=== PATIENT | male | born 1940 | race Caucasian/White ===

== ENCOUNTER 2023-11-21 06:36 | Inpatient (IN) | payer MEDICARE, OTHER, SELFPAY ==
--- NOTE | 2023-10-24 12:51 | CM ---
Patient is scheduled for an elective R THR on 11/21/23. Spoke with patient prior to surgery. Patient had a R TKR (April 2023), L TKR (October 2022) and L THR (2013) at . Reintroduced role of Orthopedic Navigator. Patient reports that he lives with
his (who patient is the primary caregiver for) in a two story home. There is one step to enter and patient has a first floor set up. He currently functions independently. He has a cane, raised toilet seat with rails, shower seat, hip kit and
rolling walker. He has had VN services through [facility]. Patient's has a caregiver Tuesday- Tuesday from 06-21. PCP is Ron Duarte.
Discussed orthopedic program and post surgical plans. Reviewed anticipated length of stay and that goal is for him to return home at discharge. Also reviewed outpatient PT. Patient is in agreement with tentative plan and will go directly to
outpatient PT at [facility]. His son will be staying with him and his for two weeks.
Patient will complete online education.
Plan: Orthopedic Navigator will remain available to assist with the care of patient and will reassess discharge needs after surgery.
[2023-11-02 09:06] VITALS: BMI 35.1
[2023-11-02 10:53] LABS: Hematocrit 41.7 % (39.0-52.0); Hemoglobin 14.1 g/dL (13.0-18.0); Mean Corp Hgb Conc. 33.8 g/dL (33.0-37.0); Mean Corpuscular Hgb 30.1 pg (27.0-31.0); Mean Corpuscular Volume 88.9 fL (80.0-94.0); Mean Platelet Volume 10.1 fL (7.4-10.4); Platelet Count 295 10^3/uL (130-400); Red Blood Cell Count 4.69 10^6/uL (4.70-6.10); Red Cell Dist. Width 13.4 % (11.5-14.5); White Blood Cell Count 8.4 10^3/uL (4.8-10.8)
--- NOTE | 2023-11-02 12:13 | HPS.HSE ---
Family Physician
-
Family Physician: Ron Duarte
Chief Complaint
-
Advanced primary osteoarthritis of the right hip.
History of Present Illness
The patient is an 83-year-old male presenting today for advanced primary osteoarthritis of the right hip. The patient previously underwent an uncomplicated right total knee arthroplasty in April 2023, a left total knee arthroplasty in
October 2022, and a left total hip arthroplasty in [address] Shai Khan. He returns to [facility] today with complaints of significant right hip pain associated with his osteoarthritis. He notes that his current right hip pain is
greatly interfering with his activities of daily living and is overall impacting his quality of life. He has tried and failed multiple conservative treatment measures in the past for his right hip pain. These conservative treatment measures include
physical therapy, self-directed therapeutic exercises, activity modification, viscosupplementation, corticosteroid injections, medical management with Tylenol and NSAIDs, and the application of ice and/or heat. Recent x-ray findings of the right hip
confirmed advanced osteoarthritis. He was determined to be in need of a right total hip arthroplasty. He denies any current complaints today such as chest pain, shortness of breath, palpitations, nausea, vomiting, diarrhea, lightheadedness,
dizziness, cough, sore throat, or fever.
Medical History
Past Medical History
Past Medical History: Reports Other
Additional Past Medical History:
1. Osteoarthritis, status post right total knee arthroplasty, 04/2023, left total knee arthroplasty, 10/2022, and left total hip arthroplasty, 2013, by Dr. Shai Khan.
2. Hypertension.
3. Hyperlipidemia.
4. Sinus bradycardia and PVCs, asymptomatic.
5. Right bundle branch block.
6. 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
7. Severe aortic stenosis, status post bovine aortic valve replacement 08/2019.
8. Mild-moderate tricuspid regurgitation.
9. Mild mitral regurgitation.
10. Non-cardiac related chest pain; cath 05/2023 without obstructive coronary artery disease.
11. Asthma, mild and intermittent.
12. Chronic bronchitis.
13. Obstructive sleep apnea, inconsistent with CPAP.
14. Xjk-ndjqrwu-dwtxvfivp diabetes, A1c 6.6.
15. GERD.
16. Colon polyps.
17. Diverticulosis.
18. Nephrolithiasis.
19. Chronic constipation.
20. Fatty liver disease.
21. Lumbar stenosis.
22. Multilevel degenerative disc disease.
23. Peripheral neuropathy.
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
25. BPH with urgency.
26. Deviated septum.
27. Subcutaneous nodules of bilateral elbows.
28. Dry macular degeneration.
29. Ingrown toenail, status post removal 10/26/2022 and prophylactic Keflex.
30. Obesity, BMI 35.1.
31. History of infrequent tobacco abuse.
Past Surgical History: Reports Other
Additional Past Surgical History:
1. Right total knee arthroplasty, 04/2023, by Dr. Shai Khan.
2. Left total knee arthroplasty, 10/2022, by Dr. Shai Khan.
3. Left total hip arthroplasty, 2013, by Dr. Shai Khan.
4. Right rotator cuff repair.
5. Bovine aortic valve replacement.
6. Cardiac catheterization x2.
7. Bilateral inguinal hernia repair.
8. Radiofrequency ablation.
9. MOHS.
10. Multiple skin grafts.
11. Multiple epidural steroid injections.
12. Bilateral cataract extraction.
13. Colonoscopy.
14. Endoscopy x2.
Social History
Tobacco: Other (He denies any cigarette smoking previously; however, he does report rare cigar use in the past. )
Alcohol: Other (He reportedly drinks 3-4 glasses of wine weekly. )
Personal:
Living: Other (The patient lives in a two-story home with his . He is her primary caregiver as she is wheelchair bound. He does report that his home has a first-floor main setup. He notes that his son will be helping him for two weeks
post-surgery.)
Family History
Family History: Not pertinent
Allergies / Home Medications
Allergy/Medication List:
Home medications:
1. Albuterol sulfate one puff inhaled every four hours as needed.
2. Amlodipine 5 mg p.o. daily.
3. Aspirin 81 mg p.o. daily.
4. Atorvastatin 40 mg p.o. daily.
5. Carvedilol 6.25 mg p.o. twice a day.
6. Famotidine 40 mg p.o. daily.
7. Valsartan 80 mg p.o. daily.
8. Metformin 500 mg p.o. twice a day.
9. Esomeprazole magnesium 40 mg p.o. twice a day.
10. PreserVision one tablet p.o. daily.
11. Breo Ellipta inhaler 1 inhalation daily.
�
ALLERGIES:� No known allergies.
ADVERSE DRUG REACTIONS: Oxycodone (dizziness, nausea).
Review of Systems
-
A 12 point ROS was completed and negative except as noted: Yes
Physical Exam
Vital Signs
Blood pressure 131/64. Heart rate 69. Respirations 18. Pulse ox 97% on room air.
Height 5 feet, 7 inches. Weight 101.7 kg. BMI 35.1.
Physical Exam
General: Well Developed, Well Nourished and No Apparent Distress
HEENT: NormoCephalic, Moist mucous membranes, PERRLA and Other (Skin graft noted on right sided scalp/cranium. )
Respiratory: Clear
Cardiac: Regular Rhythm and Murmur (Grade 1/6 systolic murmur. )
GI: Soft, Non Tender and Non Distended
Musculoskeletal: Other (Right hip: pain with internal rotation to 20 degrees, no pain with external rotation to 20 degrees, abduction to 30 degrees, and flexion to 110 degrees. )
Skin: Warm and Dry
Neuro: AO x 3 and Nonfocal/grossly intact
Laboratory Results
-
11/02/23 08:54
DIAGNOSTIC STUDIES as of 11/02/2023: Sodium 135. Potassium 4.8. BUN 20. Creatinine 1.2. Glucose 152. Hemoglobin A1c 6.6. Calcium 9.7. AST 20. ALT 17. Albumin 4.4. MRSA nasal screen negative.
EKG provided by Cardiology.
Echocardiogram 10/27/2023: Normal left ventricular size and wall thickness with mildly reduced LV systolic function. Left ventricular ejection fraction estimated by Lynch's biplane method 45-50%. Grade 1 diastolic dysfunction. Dilated left atrium.
Thickened mitral valve leaflets with mitral annular calcification.�Mild mitral regurgitation. #25 mm bovine Pettit tissue valve with peak/mean gradients of 12/8 mmHg, respectively. AV Dimensionless Index 0.6. No paravalvular or valvular aortic
regurgitation is seen. Aortic root not well visualized. Dilated ascending aorta-4.6 cm. Aortic arch not well visualized. Mild-moderate tricuspid regurgitation. Estimated pulmonary artery pressure of 32 mmHg assuming a right atrial pressure of 3
mmHg. Compared to prior study dated 06/03/2023, there is no significant change.
Cardiac catheterization 06/16/2023: Stable non-obstructive coronary disease.
Impression/Plan
-
CLEARANCES:
1. Primary medical, Jenna Pineda PA-C, pending.
Primary medical phone number: [phone].
2. Cardiology, Dr. Diogenes Fam, cleared.
3. Dental waived.
IMPRESSION/PLAN:
1. Advanced primary osteoarthritis of the right hip in need of a right total hip arthroplasty by Dr. Shai Khan on 11/21/2023. The benefits and risks of the procedure have been explained to the patient. The patient understands these risks and
wishes to proceed.
2. Deep vein thrombosis prophylaxis: Aspirin with bilateral venous compression devices.
3. Chronic constipation: We will add Milk of Magnesia nightly to a bowel regimen of Colace and Senokot post-surgery.
4. Pain management: The patient would prefer to avoid Oxycodone and [place] if possible. We will attempt pain control with Tylenol with Codeine as needed for moderate to severe post-operative pain. We will also include Toradol per patient preference.
Gabapentin may be considered for breakthrough pain as the patient has tolerated this medication previously.
Patient's phone number: [phone].
Patient's contact (Dariela Hinton - Spouse): [phone].
[2023-11-02 12:35] LABS: ALT (SGPT) 17 U/L (0-50); AST (SGOT) 20 U/L (17-59); Albumin 4.4 g/dl (3.5-5.0); Alkaline Phosphatase 94 U/L (38-126); Blood Urea Nitrogen 20 mg/dl (9-20); Calcium 9.7 mg/dl (8.4-10.2); Carbon Dioxide 25 mmol/L (22-30); Chloride 104 mmol/L (98-107); Estimated Creatinine Clearance 54 ml/min; Glucose 152 mg/dl (70-99); Potassium 4.8 mmol/L (3.5-5.1); Sodium 135 mmol/L (135-145); Total Bilirubin 0.6 mg/dl (0.2-1.3); Total Protein 7.2 g/dl (6.3-8.2); eGFR > 60.00
[2023-11-02 13:21] LABS: Glycohemoglobin (HgbA1c) 6.6 % (4.0-5.6)
[2023-11-02 15:27] VITALS: BMI 35.1
[2023-11-21] VITALS (16 sets, daily range): BP systolic 84–151; BP diastolic 37–78; PULSE 67–81; O2SAT 94–97
[2023-11-21 09:09] LABS: Glucose - Point of Care 106 mg/dl (70-99)
[2023-11-21] MEDS: CELEBREX 200 MG PO (09:14)
[2023-11-21] MEDS: TYLENOL 650 MG PO (09:14)
[2023-11-21] MEDS: NORMOSOL-R 1000 IV ×2 (09:15→12:50)
[2023-11-21 12:09] LABS: Glucose - Point of Care 113 mg/dl (70-99)
[2023-11-21] MEDS: TYLENOL #3 1 TABLET PO ×2 (13:00→21:01)
[2023-11-21] MEDS: NOVOLOG FLEXPEN-MODERATE RESISTANCE SC (13:25)
--- NOTE | 2023-11-21 14:30 | PTCARENOTE ---
pt admitted to room 210 from the PACU at 1325. pt arrived awake and alert, at bedside. Telemetry reading SR w/pvc's. tolerating water and instructed to order regular food. Right hip surgical dressing clean and dry, ice pack in place. weak
pedal pulses noted B/L LE. pt just starting to move his toes, decreased sensation noted upon arrival. toes are pink and warm. pt oriented to room, environment and plan of care with verbalized understanding. will observe.
[2023-11-21] MEDS: PEPCID 40 MG PO (14:59)
[2023-11-21] MEDS: TORADOL 10 MG PO (14:59)
[2023-11-21] MEDS: GLUCOPHAGE PO (14:59)
[2023-11-21] MEDS: PROTONIX 40 MG PO (14:59)
[2023-11-21] MEDS: LIPITOR 40 MG PO (14:59)
--- NOTE | 2023-11-21 15:05 | W.PN.ORTHO ---
Today's Communication / Plan
-
D/c when clinically stable.
Assessment
.
Distal Motor Intact: Yes
Dressing:
Clean, dry and intact.
Assessment:
R hip OA s/p R EMIR w/ Dr Khan 11/21/23
- s/p R TKA, 04/2023, L TKA, 10/2022, and L EMIR, 2013, by Dr Khan
DVT prophylaxis - ASA, b/l venous foot pumps
HTN - + parameters - monitor BP
Sinus bradycardia, RBBB, and PVCs, asymptomatic - monitor on tele
- Resume BB w/ HR parameters
Asthma, mild and intermittent, Chronic bronchitis, and CELIO, non-compliant w/ CPAP - monitor O2 on continuous pulse ox and wean supplemental O2 as tolerated
- Resume inhalers
- IS
- Add supplemental O2 HS due to CELIO
Hix-ccrixsl-dplmtpfej diabetes, A1c 6.6 - monitor BS
- Resume Metformin
- + SSI
GERD - resume Pepcid, PPI therapy
Chronic constipation - add MOM HS to bowel regimen of Colace and Senna
Peripheral neuropathy - add Gabapentin TID
BPH with urgency - add daily Flomax
- Monitor voids
HLD
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
Severe , status post bovine AVR 08/2019
Mild-moderate tricuspid regurgitation
Mild mitral regurgitation
Non-cardiac related chest pain; cath 05/2023 without obstructive coronary artery disease
Colon polyps
Diverticulosis
Nephrolithiasis
Fatty liver disease
Lumbar stenosis
Multilevel degenerative disc disease
Angiosarcoma of right scalp, status post MOHS, multiple skin grafts, and chemo 2016
Deviated septum
Subcutaneous nodules of bilateral elbows
Dry macular degeneration
Ingrown toenail, status post removal 10/26/2022 and prophylactic Keflex
Obesity, BMI 35.1
History of infrequent tobacco abuse
Pt will need Cefadroxil x1 week upon d/c for continued joint prophylaxis
Plan
.
Surgery / Date: R EMIR w/ Dr Khan 11/21/23
DVT Prophylaxis: Aspirin
Activity:
Out of bed.
PT/OT
Discharge Plan: Home w/ Outpatient PT
Subjective
.
.:
Patient examined resting in bed.
Complaints of mild R hip 'burning' pain - will add Gabapentin TID.
Denies any other new significant complaints.
Vital Signs and Labs
.
Vital Signs and Labs:
Lab Results
11/02/23 08:54
11/02/23 08:54
Physical Exam
-
HEENT: No pallor, cyanosis, or jaundice. Throat clear.
NECK: Supple. No JVD.
RESPIRATORY: Lungs clear to auscultation.
CVS: S1, S2 normal. RRR.�1/6 systolic murmur.
ABDOMEN: Soft, non-tender. No distension. obese.
EXTREMITIES: Strength equal, no calf pain with palpation/dorsiflexion. Calves soft.
CRANIOLOGIST: AOx3. No focal deficits. top case assembler grossly intact
[2023-11-21] MEDS: FLOMAX 0.400000000000000022 MG PO (16:22)
[2023-11-21] MEDS: NEURONTIN 200 MG PO ×2 (16:22→20:50)
[2023-11-21 17:18] LABS: Glucose - Point of Care 244 mg/dl (70-99)
[2023-11-21] MEDS: GLUCOPHAGE 500 MG PO (17:26)
[2023-11-21] MEDS: NOVOLOG FLEXPEN-MODERATE RESISTANCE 3 UNITS SC (17:27)
[2023-11-21] MEDS: ANCEF 5 IV (18:20)
[2023-11-21] MEDS: ASPIRIN 325 MG PO (18:20)
[2023-11-21] MEDS: MILK OF MAGNESIA 30 ML PO (20:50)
[2023-11-21] MEDS: COLACE 100 MG PO (20:51)
[2023-11-21] MEDS: SENOKOT 17.1999999999999993 MG PO (20:51)
[2023-11-21] MEDS: COREG 6.25 MG PO (20:56)
[2023-11-21 22:01] LABS: Glucose - Point of Care 223 mg/dl (70-99)
[2023-11-21] MEDS: BACTROBAN 2% OINTMENT 1 APPLIC NASAL (22:31)
[2023-11-22] MEDS: TORADOL 10 MG PO ×2 (00:20→08:38)
[2023-11-22] MEDS: ANCEF 5 IV (02:36)
[2023-11-22] MEDS: TYLENOL #3 2 TABLET PO (02:40)
[2023-11-22 03:06] VITALS: BP 131/73
[2023-11-22] MEDS: SYMBICORT 80/4.5 MCG INHALER 2 PUFF INH (07:24)
[2023-11-22] MEDS: ProAIR HFA INHALER 1 PUFF INH (07:37)
[2023-11-22 08:00] VITALS: BP 105/50
[2023-11-22] MEDS: NOVOLOG FLEXPEN-MODERATE RESISTANCE SC (08:37)
[2023-11-22] MEDS: FLOMAX 0.400000000000000022 MG PO (08:38)
[2023-11-22] MEDS: SENOKOT 17.1999999999999993 MG PO (08:38)
[2023-11-22] MEDS: GLUCOPHAGE 500 MG PO (08:38)
[2023-11-22] MEDS: COLACE 100 MG PO (08:39)
[2023-11-22] MEDS: ASPIRIN 325 MG PO (08:39)
[2023-11-22] MEDS: NEURONTIN 200 MG PO (08:39)
[2023-11-22] MEDS: PEPCID 40 MG PO (08:39)
[2023-11-22] MEDS: PROTONIX 40 MG PO (08:39)
[2023-11-22] MEDS: COREG 6.25 MG PO (08:39)
[2023-11-22] MEDS: LIPITOR 40 MG PO (08:39)
[2023-11-22] MEDS: BACTROBAN 2% OINTMENT 1 APPLIC NASAL (08:39)
--- NOTE | 2023-11-22 09:40 | CM ---
Reviewed chart and held rounds with PT, OT and nursing. Patient admitted as planned for elective R THR. Met with patient at bedside. Confirmed information previously obtained for assessment. Also discussed discharge plans. The plan is for patient
to go to his home at discharge. He will have support from his son. Patient will go directly to outpatient PT at [facility]. He has an appointment for Tuesday, November 23. Reviewed need to schedule appointment with PA at Dr. Khan office in
two weeks for removal of edilma.
Patient has a cane, raised toilet seat with rails, shower seat, hip kit and rolling walker.
He will use [facility].
[2023-11-22 10:10] VITALS: BP 114/71; PULSE 74
--- NOTE | 2023-11-22 10:39 | W.PN.ORTHO ---
Today's Communication / Plan
-
Await PT recs.
D/c later today if remaining clinically stable.
Assessment
.
Distal Motor Intact: Yes
Dressing:
Clean, dry and intact.
Assessment:
R hip OA s/p R EMIR w/ Dr Khan 11/21/23
- s/p R TKA, 04/2023, L TKA, 10/2022, and L EMIR, 2013, by Dr Khan
DVT prophylaxis - ASA, b/l venous foot pumps
HTN - + parameters - BPs stable
Sinus bradycardia, RBBB, and PVCs, asymptomatic - NSR w/ monomorphic PVCs on tele
- Resumed BB w/ HR parameters
Asthma, mild and intermittent, Chronic bronchitis, and CELIO, non-compliant w/ CPAP - O2 stable on RA
- Resumed inhalers
- IS
- S/p supplemental O2 HS due to CELIO; advised compliance w/ at home CPAP
Nlx-lneyoem-rwaufttiq diabetes, A1c 6.6 - BS readings initially elevated 2* surgical stress, IV steroids in OR, and holding of AM Metformin the DOS
- BS readings expected to improve w/ resumption of Metformin
- Needed minimal SSI during admission
GERD - resumed Pepcid, PPI therapy
Chronic constipation - continue MOM HS with standard bowel regimen of Colace and Senna
Peripheral neuropathy - continue Gabapentin TID
BPH with urgency - voiding appropriately by POD 1
- S/p Flomax during admission
HLD
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
Severe , status post bovine AVR 08/2019
Mild-moderate tricuspid regurgitation
Mild mitral regurgitation
Non-cardiac related chest pain; cath 05/2023 without obstructive coronary artery disease
Colon polyps
Diverticulosis
Nephrolithiasis
Fatty liver disease
Lumbar stenosis
Multilevel degenerative disc disease
Angiosarcoma of right scalp, status post MOHS, multiple skin grafts, and chemo 2016
Deviated septum
Subcutaneous nodules of bilateral elbows
Dry macular degeneration
Ingrown toenail, status post removal 10/26/2022 and prophylactic Keflex
Obesity, BMI 35.1
History of infrequent tobacco abuse
Pt will need Cefadroxil x1 week upon d/c for continued joint prophylaxis
Plan
.
Surgery / Date: R EMIR w/ Dr Khan 11/21/23
DVT Prophylaxis: Aspirin
Activity:
Out of bed.
PT/OT
Discharge Plan: Home w/ Outpatient PT
Subjective
.
.:
Patient resting comfortably in his chair this AM.
Did well w/ OT this AM; awaiting PT assessment.
Denies any new significant complaints.
R hip pain well controlled w/ current pain med regimen.
Eager for potential d/c today.
Vital Signs and Labs
.
Vital Signs and Labs:
Lab Results
11/02/23 08:54
11/02/23 08:54
Temp Pulse Resp BP Pulse Ox
97.9 F 74 20 105/50 91
11/22/23 08:00 11/22/23 08:00 11/22/23 08:00 11/22/23 08:40 11/22/23 08:00
Non-invasive Hgb result: 12.1
Physical Exam
-
HEENT: No pallor, cyanosis, or jaundice. Throat clear.
NECK: Supple. No JVD.
RESPIRATORY: Lungs clear to auscultation.
CVS: S1, S2 normal. RRR.�
ABDOMEN: Soft, non-tender. No distension. Obese.
EXTREMITIES: Strength equal, no calf pain with palpation/dorsiflexion. Calves soft.
CELLOPHANER: AOx3. No focal deficits. rocket propellant plant supervisor grossly intact
--- NOTE | 2023-11-23 08:22 | W.DS.TRANS ---
DC Summary - Web Site Developer
-
Discharge Instructions:
Discharge Diagnosis/Procedures R hip OA s/p R EMIR w/ Dr Khan 11/21/23
Diet Diabetic, Carb Controlled
Activity As tolerated,With Walker
Driving Restrictions Not until seen by your Dr
Bathing Restrictions OK to Shower
Other Services PT
Wound Care Dressing to be removed 1 week post-surgery.
Misael to be removed in 2 weeks at follow-up
appointment with surgeon's office.
Instructions:
Stand-Alone Forms: Total Hip/Knee Replacement D/C
Changes to Home Medications: Yes
Discharge Medications:
DC Medications w/original date entered in [facility]
famotidine 40 mg tablet 40 mg PO DAILY Gastrointestinal issue 11/05/13
albuterol sulfate 90 mcg/actuation aerosol inhaler (Ventolin HFA) 1 puff inhalation Q4HPRN PRN As Needed 07/16/19
atorvastatin 40 mg tablet 40 mg PO DAILY High cholesterol 07/16/19
carvedilol 6.25 mg tablet 6.25 mg PO BID Heart disease/condition 11/03/22
metformin 500 mg tablet 500 mg PO BID Diabetes 04/05/23
vit C 250 mg-vit E 90 mg-zinc 40 mg-copper 1 ab-fshkfq-xxraec capsule (PreserVision AREDS-2) 1 tab PO DAILY Supplement 04/05/23
fluticasone furoate 100 mcg-vilanterol 25 mcg/dose inhalation powder (Breo Ellipta) 1 inh inhalation DAILY 06/16/23
esomeprazole magnesium 40 mg capsule,delayed release (Nexium) 40 mg PO DAILY 10/28/23
mupirocin 2 % topical ointment 1 applic intranasal BID #1 tube 11/02/23
Bifidobacterium infantis 4 mg capsule (Align) 4 mg PO DAILY #7 caps 11/22/23
acetaminophen 300 mg-codeine 30 mg tablet 1 - 2 tab PO Q4HPRN PRN moderate-severe pain #30 tabs 11/22/23
acetaminophen 325 mg tablet 650 mg PO Q4HPRN PRN mild pain #60 tabs 11/22/23
amlodipine 5 mg tablet 5 mg PO DAILY #0 tabs 11/22/23
aspirin 325 mg tablet 325 mg PO DAILY #30 tabs 11/22/23
cefadroxil 500 mg capsule 500 mg PO BID #14 caps 11/22/23
docusate sodium 100 mg capsule 100 mg PO BID #30 caps 11/22/23
gabapentin 100 mg capsule 200 mg PO TID #30 caps 11/22/23
ketorolac 10 mg tablet 10 mg PO Q8H #15 tabs 11/22/23
magnesium hydroxide 400 mg/5 mL oral suspension 30 ml PO HS #3,780 mL 11/22/23
ondansetron HCl 4 mg tablet 4 mg PO Q6H PRN nausea and vomiting #30 tabs 11/22/23
sennosides 8.6 mg tablet (Senna Lax) 17.2 mg PO BID #30 tabs 11/22/23
valsartan 80 mg tablet 80 mg PO DAILY #0 tabs 11/22/23
Home Medication Changes
Bifidobacterium infantis 4 mg capsule (Align) 4 mg PO DAILY #7 caps 11/22/23
acetaminophen 300 mg-codeine 30 mg tablet 1 - 2 tab PO Q4HPRN PRN moderate-severe pain #30 tabs 11/22/23
acetaminophen 325 mg tablet 650 mg PO Q4HPRN PRN mild pain #60 tabs 11/22/23
aspirin 325 mg tablet 325 mg PO DAILY #30 tabs 11/22/23
cefadroxil 500 mg capsule 500 mg PO BID #14 caps 11/22/23
docusate sodium 100 mg capsule 100 mg PO BID #30 caps 11/22/23
gabapentin 100 mg capsule 200 mg PO TID #30 caps 11/22/23
ketorolac 10 mg tablet 10 mg PO Q8H #15 tabs 11/22/23
magnesium hydroxide 400 mg/5 mL oral suspension 30 ml PO HS #3,780 mL 11/22/23
ondansetron HCl 4 mg tablet 4 mg PO Q6H PRN nausea and vomiting #30 tabs 11/22/23
sennosides 8.6 mg tablet (Senna Lax) 17.2 mg PO BID #30 tabs 11/22/23
Pending Results: No
== END 2023-11-22 12:06 | disposition home or self-care (01) | DRG 470 ==
LOC: 2 SOUTH 06:36
PROVIDERS: ADMITTING PHYSICIAN Specialist; FAMILY PHYSICIAN Internal Medicine
PROC: 0SR90JA Replacement of Right Hip Joint with Synthetic Substitute, Uncemented, Open Approach (ICD-10-PCS; 2023-11-21)
DX: M16.11 Unilateral primary osteoarthritis, right hip (principal); I10 Essential (primary) hypertension; E78.5 Hyperlipidemia, unspecified; I07.1 Rheumatic tricuspid insufficiency; K21.9 Gastro-esophageal reflux disease without esophagitis; Z68.35 Body mass index [BMI] 35.0-35.9, adult; E66.9 Obesity, unspecified; G47.33 Obstructive sleep apnea (adult) (pediatric); Z99.3 Dependence on wheelchair; Z91.199 Patient's noncompliance with other medical treatment and regimen due to unspecified reason; E11.9 Type 2 diabetes mellitus without complications; K59.09 Other constipation; G62.9 Polyneuropathy, unspecified; N40.1 Benign prostatic hyperplasia with lower urinary tract symptoms; R39.15 Urgency of urination; J45.20 Mild intermittent asthma, uncomplicated; J44.89 Other specified chronic obstructive pulmonary disease
CPT/HCPCS: 36415; 73502; 80053; 82962; 83036; 85027; 87070; 94640; 97110; 97162; 97166; 97530; 97535; C1713; C1776

== ENCOUNTER → 2023-12-31 12:56 | Outpatient (REF) | payer MEDICARE, OTHER, SELFPAY | LOC: RAD 12:56 | PROVIDERS: ATTENDING PHYSICIAN Specialist; FAMILY PHYSICIAN Internal Medicine | DX: R60.0 Localized edema (principal) | CPT/HCPCS: 93971 ==

== ENCOUNTER → 2024-03-26 07:22 | Outpatient (REF) | payer MEDICARE, OTHER, SELFPAY ==
[2024-03-26 09:07] LABS: Hematocrit 42.6 % (39.0-52.0); Hemoglobin 14.2 g/dL (13.0-18.0); Mean Corp Hgb Conc. 33.3 g/dL (33.0-37.0); Mean Corpuscular Hgb 29.5 pg (27.0-31.0); Mean Corpuscular Volume 88.6 fL (80.0-94.0); Mean Platelet Volume 10.4 fL (7.4-10.4); Platelet Count 212 10^3/uL (130-400); Red Blood Cell Count 4.81 10^6/uL (4.70-6.10); Red Cell Dist. Width 15.6 % (11.5-14.5); White Blood Cell Count 6.8 10^3/uL (4.8-10.8)
[2024-03-26 12:15] LABS: Blood Urea Nitrogen 31 mg/dl (9-20); Calcium 10.2 mg/dl (8.4-10.2); Carbon Dioxide 20 mmol/L (22-30); Chloride 108 mmol/L (98-107); Glucose 99 mg/dl (70-99); Potassium 5.2 mmol/L (3.5-5.1); Sodium 138 mmol/L (135-145); eGFR 54.85
== END ==
LOC: SDSPAT 07:22
PROVIDERS: ATTENDING PHYSICIAN Student in an Organized Health Care Education/Training Program; FAMILY PHYSICIAN Internal Medicine; OTHER PHYSICIAN Dermatology
DX: Z01.818 Encounter for other preprocedural examination (principal)
CPT/HCPCS: 36415; 80048; 85027

== ENCOUNTER 2024-04-09 06:18 | Day surgery (SDC) | payer MEDICARE, OTHER, SELFPAY ==
[2024-03-26 07:38] VITALS: BMI 34.2
[2024-04-09] VITALS (11 sets, daily range): BP systolic 117–129; BP diastolic 52–99; BMI 34.2
[2024-04-09 08:30] LABS: Glucose - Point of Care 107 mg/dl (70-99)
[2024-04-09] MEDS: CELEBREX 200 MG PO (08:36)
[2024-04-09] MEDS: NORMOSOL-R 1000 IV (08:37)
[2024-04-09] MEDS: TYLENOL 1000 MG PO (08:37)
[2024-04-09] MEDS: COREG 6.25 MG PO (09:18)
[2024-04-09] MEDS: DILAUDID 0.5 MG IV (12:01)
[2024-04-09 12:10] LABS: Glucose - Point of Care 116 mg/dl (70-99)
[2024-04-09] MEDS: DILAUDID 0.25 MG IV (12:24)
== END 2024-04-09 14:25 | disposition home or self-care (01) ==
LOC: SDS 06:18
PROVIDERS: ATTENDING PHYSICIAN Student in an Organized Health Care Education/Training Program; FAMILY PHYSICIAN Internal Medicine
DX: M21.41 Flat foot [pes planus] (acquired), right foot (principal); M67.01 Short Achilles tendon (acquired), right ankle; Q66.6 Other congenital valgus deformities of feet
CPT/HCPCS: 27687; 28725; 73610; 76000; 82962; 93005

== ENCOUNTER → 2024-05-25 06:29 | Day surgery (SDC) | payer MEDICARE, OTHER, SELFPAY ==
[2024-05-25 13:23] LABS: Glucose - Point of Care 101 mg/dl (70-99)
== END ==
LOC: GI 06:29
PROVIDERS: ATTENDING PHYSICIAN Internal Medicine Gastroenterology; FAMILY PHYSICIAN Internal Medicine
DX: Z12.11 Encounter for screening for malignant neoplasm of colon (principal); D12.3 Benign neoplasm of transverse colon; K57.30 Diverticulosis of large intestine without perforation or abscess without bleeding; K64.8 Other hemorrhoids; Z86.010 Personal history of colon polyps
CPT/HCPCS: 45380; 88305; 82962

== ENCOUNTER → 2024-11-19 12:26 | Outpatient (REF) | payer MEDICARE, OTHER, SELFPAY ==
[2024-11-19 13:06] LABS: % Basophils 0.4 % (0-2); % Immature Granulocytes 0.5 % (0-0.5); % Lymphocytes 17.2 % (20.5-51.1); % Monocytes 8.1 % (1.7-9.3); % Neutrophils 73.8 % (42.2-75.2); Absolute Lymphocytes 1.3 10^3/uL (1.2-3.4); Absolute Monocytes 0.6 10^3/uL (0.1-0.6); Absolute Neutrophils 5.4 10^3/uL (1.4-6.5); Hematocrit 40.5 % (39.0-52.0); Hemoglobin 13.4 g/dL (13.0-18.0); Mean Corp Hgb Conc. 33.1 g/dL (33.0-37.0); Mean Corpuscular Hgb 30.2 pg (27.0-31.0); Mean Corpuscular Volume 91.4 fL (80.0-94.0); Mean Platelet Volume 10.2 fL (7.4-10.4); Platelet Count 271 10^3/uL (130-400); Red Blood Cell Count 4.43 10^6/uL (4.70-6.10); Red Cell Dist. Width 13.4 % (11.5-14.5); White Blood Cell Count 7.3 10^3/uL (4.8-10.8)
[2024-11-19 13:55] LABS: ALT (SGPT) 15 U/L (0-50); AST (SGOT) 19 U/L (17-59); Albumin 4.4 g/dl (3.5-5.0); Alkaline Phosphatase 82 U/L (38-126); Blood Urea Nitrogen 22 mg/dl (9-20); Calcium 9.4 mg/dl (8.4-10.2); Carbon Dioxide 22 mmol/L (22-30); Chloride 104 mmol/L (98-107); Glucose 112 mg/dl (70-99); Potassium 4.4 mmol/L (3.5-5.1); Sodium 138 mmol/L (135-145); Total Bilirubin 0.8 mg/dl (0.2-1.3); Total Protein 6.9 g/dl (6.3-8.2); eGFR > 60.00
== END ==
LOC: OIDL 12:26
PROVIDERS: ATTENDING PHYSICIAN Internal Medicine Hematology & Oncology
DX: C49.0 Malignant neoplasm of connective and soft tissue of head, face and neck (principal)
CPT/HCPCS: 80053; 85025

== ENCOUNTER → 2024-11-26 15:26 | Outpatient (REF) | payer MEDICARE, OTHER, SELFPAY ==
[2024-11-26 16:45] LABS: % Basophils 0.9 % (0-2); % Eosinophils 1.3 % (0-6); % Immature Granulocytes 0.4 % (0-0.5); % Lymphocytes 18.6 % (20.5-51.1); % Monocytes 7.7 % (1.7-9.3); % Neutrophils 71.1 % (42.2-75.2); Absolute Basophils 0.1 10^3/uL (0-0.2); Absolute Eosinophils 0.1 10^3/uL (0-0.7); Absolute Lymphocytes 1.3 10^3/uL (1.2-3.4); Absolute Monocytes 0.5 10^3/uL (0.1-0.6); Absolute Neutrophils 4.9 10^3/uL (1.4-6.5); Hemoglobin 13.7 g/dL (13.0-18.0); Mean Corp Hgb Conc. 33.4 g/dL (33.0-37.0); Mean Corpuscular Hgb 30.2 pg (27.0-31.0); Mean Corpuscular Volume 90.5 fL (80.0-94.0); Mean Platelet Volume 9.9 fL (7.4-10.4); Nucleated Red Blood Cells % 0 % (-); Platelet Count 272 10^3/uL (130-400); Red Blood Cell Count 4.53 10^6/uL (4.70-6.10); Red Cell Dist. Width 13.4 % (11.5-14.5); White Blood Cell Count 6.9 10^3/uL (4.8-10.8)
[2024-11-26 17:01] LABS: ALT (SGPT) 16 U/L (0-50); AST (SGOT) 19 U/L (17-59); Albumin 4.7 g/dl (3.5-5.0); Alkaline Phosphatase 79 U/L (38-126); Blood Urea Nitrogen 24 mg/dl (9-20); Calcium 10.3 mg/dl (8.4-10.2); Carbon Dioxide 21 mmol/L (22-30); Chloride 105 mmol/L (98-107); Glucose 119 mg/dl (70-99); Sodium 139 mmol/L (135-145); Total Bilirubin 0.8 mg/dl (0.2-1.3); Total Protein 7.5 g/dl (6.3-8.2); eGFR 54.51
== END ==
LOC: REG 15:26
PROVIDERS: ATTENDING PHYSICIAN Internal Medicine Hematology & Oncology; FAMILY PHYSICIAN Internal Medicine
DX: C49.0 Malignant neoplasm of connective and soft tissue of head, face and neck (principal)
CPT/HCPCS: 36415; 80053; 85025

== ENCOUNTER → 2024-12-03 06:31 | Outpatient (REF) | payer MEDICARE, OTHER, SELFPAY ==
[2024-12-03 07:44] LABS: % Basophils 0.7 % (0-2); % Immature Granulocytes 0.4 % (0-0.5); % Lymphocytes 22.3 % (20.5-51.1); % Monocytes 2.8 % (1.7-9.3); % Neutrophils 73.8 % (42.2-75.2); Absolute Basophils 0.1 10^3/uL (0-0.2); Absolute Lymphocytes 1.6 10^3/uL (1.2-3.4); Absolute Monocytes 0.2 10^3/uL (0.1-0.6); Absolute Neutrophils 5.2 10^3/uL (1.4-6.5); Hematocrit 43.6 % (39.0-52.0); Hemoglobin 14.6 g/dL (13.0-18.0); Mean Corp Hgb Conc. 33.5 g/dL (33.0-37.0); Mean Corpuscular Volume 89.7 fL (80.0-94.0); Mean Platelet Volume 10.4 fL (7.4-10.4); Nucleated Red Blood Cells % 0 % (-); Platelet Count 237 10^3/uL (130-400); Red Blood Cell Count 4.86 10^6/uL (4.70-6.10); Red Cell Dist. Width 13.1 % (11.5-14.5); White Blood Cell Count 7.1 10^3/uL (4.8-10.8)
[2024-12-03 08:05] LABS: ALT (SGPT) 21 U/L (0-50); AST (SGOT) 22 U/L (17-59); Albumin 4.4 g/dl (3.5-5.0); Alkaline Phosphatase 77 U/L (38-126); Blood Urea Nitrogen 18 mg/dl (9-20); Calcium 9.4 mg/dl (8.4-10.2); Carbon Dioxide 24 mmol/L (22-30); Chloride 104 mmol/L (98-107); Glucose 114 mg/dl (70-99); Potassium 4.5 mmol/L (3.5-5.1); Sodium 137 mmol/L (135-145); Total Bilirubin 0.8 mg/dl (0.2-1.3); Total Protein 7.4 g/dl (6.3-8.2); eGFR > 60.00
== END ==
LOC: REG 06:31
PROVIDERS: ATTENDING PHYSICIAN Internal Medicine Hematology & Oncology; FAMILY PHYSICIAN Internal Medicine
DX: C49.0 Malignant neoplasm of connective and soft tissue of head, face and neck (principal)
CPT/HCPCS: 36415; 80053; 85025

== ENCOUNTER → 2024-12-11 06:39 | Outpatient (REF) | payer MEDICARE, OTHER, SELFPAY ==
[2024-12-11 07:39] LABS: % Basophils 0.5 % (0-2); % Immature Granulocytes 0.5 % (0-0.5); % Lymphocytes 22.2 % (20.5-51.1); % Monocytes 3.2 % (1.7-9.3); % Neutrophils 73.6 % (42.2-75.2); Absolute Lymphocytes 1.3 10^3/uL (1.2-3.4); Absolute Monocytes 0.2 10^3/uL (0.1-0.6); Absolute Neutrophils 4.4 10^3/uL (1.4-6.5); Hematocrit 39.9 % (39.0-52.0); Hemoglobin 13.1 g/dL (13.0-18.0); Mean Corp Hgb Conc. 32.8 g/dL (33.0-37.0); Mean Corpuscular Volume 91.5 fL (80.0-94.0); Mean Platelet Volume 10.3 fL (7.4-10.4); Nucleated Red Blood Cells % 0 % (-); Platelet Count 241 10^3/uL (130-400); Red Blood Cell Count 4.36 10^6/uL (4.70-6.10); Red Cell Dist. Width 12.9 % (11.5-14.5); White Blood Cell Count 5.9 10^3/uL (4.8-10.8)
[2024-12-11 08:15] LABS: ALT (SGPT) 31 U/L (0-50); AST (SGOT) 21 U/L (17-59); Albumin 4.6 g/dl (3.5-5.0); Alkaline Phosphatase 77 U/L (38-126); Blood Urea Nitrogen 19 mg/dl (9-20); Calcium 9.9 mg/dl (8.4-10.2); Carbon Dioxide 23 mmol/L (22-30); Chloride 101 mmol/L (98-107); Glucose 127 mg/dl (70-99); Potassium 4.6 mmol/L (3.5-5.1); Sodium 136 mmol/L (135-145); Total Protein 7.3 g/dl (6.3-8.2); eGFR > 60.00
== END ==
LOC: REG 06:39
PROVIDERS: ATTENDING PHYSICIAN Internal Medicine Hematology & Oncology; FAMILY PHYSICIAN Internal Medicine
DX: C49.0 Malignant neoplasm of connective and soft tissue of head, face and neck (principal)
CPT/HCPCS: 36415; 80053; 85025

== ENCOUNTER → 2024-12-19 14:55 | Outpatient (REF) | payer MEDICARE, OTHER, SELFPAY | LOC: RAD 14:55 | PROVIDERS: ATTENDING PHYSICIAN Internal Medicine Hematology & Oncology; FAMILY PHYSICIAN Internal Medicine | DX: C49.0 Malignant neoplasm of connective and soft tissue of head, face and neck (principal) | CPT/HCPCS: 70491; 71046; 71260; 74177; Q9967 ==

== ENCOUNTER → 2024-12-24 11:34 | Outpatient (REF) | payer MEDICARE, OTHER, SELFPAY | LOC: RCS 11:34 | PROVIDERS: ATTENDING PHYSICIAN Internal Medicine Interventional Cardiology; FAMILY PHYSICIAN Internal Medicine | DX: I35.0 Nonrheumatic aortic (valve) stenosis (principal) | CPT/HCPCS: 93306 ==

== ENCOUNTER → 2024-12-26 11:39 | Outpatient (REF) | payer MEDICARE, OTHER, SELFPAY ==
[2024-12-26 11:46] LABS: % Basophils 0.4 % (0-2); % Eosinophils 2.2 % (0-6); % Immature Granulocytes 1.4 % (0-0.5); % Monocytes 11.2 % (1.7-9.3); % Neutrophils 60.8 % (42.2-75.2); Absolute Eosinophils 0.1 10^3/uL (0-0.7); Absolute Immature Granulocytes 0.1 10^3/uL (0-0.05); Absolute Lymphocytes 1.2 10^3/uL (1.2-3.4); Absolute Monocytes 0.6 10^3/uL (0.1-0.6); Absolute Neutrophils 3.1 10^3/uL (1.4-6.5); Hemoglobin 13.6 g/dL (13.0-18.0); Mean Corpuscular Hgb 30.7 pg (27.0-31.0); Mean Corpuscular Volume 90.3 fL (80.0-94.0); Mean Platelet Volume 9.5 fL (7.4-10.4); Platelet Count 296 10^3/uL (130-400); Red Blood Cell Count 4.43 10^6/uL (4.70-6.10); Red Cell Dist. Width 13.2 % (11.5-14.5); White Blood Cell Count 5.1 10^3/uL (4.8-10.8)
[2024-12-26 13:49] LABS: ALT (SGPT) 22 U/L (0-50); AST (SGOT) 20 U/L (17-59); Albumin 4.2 g/dl (3.5-5.0); Alkaline Phosphatase 78 U/L (38-126); Blood Urea Nitrogen 15 mg/dl (9-20); Carbon Dioxide 23 mmol/L (22-30); Chloride 106 mmol/L (98-107); Glucose 139 mg/dl (70-99); Potassium 4.5 mmol/L (3.5-5.1); Sodium 139 mmol/L (135-145); Total Bilirubin 0.6 mg/dl (0.2-1.3); Total Protein 7.1 g/dl (6.3-8.2); eGFR > 60.00
== END ==
LOC: OIDL 11:39
PROVIDERS: ATTENDING PHYSICIAN Nurse Practitioner Primary Care
DX: C49.0 Malignant neoplasm of connective and soft tissue of head, face and neck (principal)
CPT/HCPCS: 80053; 85025

== ENCOUNTER → 2025-01-02 06:39 | Outpatient (REF) | payer MEDICARE, OTHER, SELFPAY ==
[2025-01-02 07:13] LABS: % Eosinophils 2.6 % (0-6); % Immature Granulocytes 0.5 % (0-0.5); % Lymphocytes 22.8 % (20.5-51.1); % Monocytes 5.3 % (1.7-9.3); % Neutrophils 67.8 % (42.2-75.2); Absolute Basophils 0.1 10^3/uL (0-0.2); Absolute Eosinophils 0.2 10^3/uL (0-0.7); Absolute Lymphocytes 1.3 10^3/uL (1.2-3.4); Absolute Monocytes 0.3 10^3/uL (0.1-0.6); Hemoglobin 13.1 g/dL (13.0-18.0); Mean Corp Hgb Conc. 32.8 g/dL (33.0-37.0); Mean Corpuscular Hgb 30.2 pg (27.0-31.0); Mean Corpuscular Volume 92.2 fL (80.0-94.0); Mean Platelet Volume 10.2 fL (7.4-10.4); Nucleated Red Blood Cells % 0 % (-); Platelet Count 239 10^3/uL (130-400); Red Blood Cell Count 4.34 10^6/uL (4.70-6.10); Red Cell Dist. Width 13.3 % (11.5-14.5); White Blood Cell Count 5.9 10^3/uL (4.8-10.8)
[2025-01-02 07:45] LABS: ALT (SGPT) 23 U/L (0-50); AST (SGOT) 19 U/L (17-59); Albumin 4.6 g/dl (3.5-5.0); Alkaline Phosphatase 85 U/L (38-126); Blood Urea Nitrogen 19 mg/dl (9-20); Calcium 9.7 mg/dl (8.4-10.2); Carbon Dioxide 25 mmol/L (22-30); Chloride 102 mmol/L (98-107); Glucose 141 mg/dl (70-99); HDL Cholesterol 46 mg/dl; LDL Cholesterol, Calculated 119 mg/dl; Potassium 4.6 mmol/L (3.5-5.1); Sodium 139 mmol/L (135-145); Total Bilirubin 0.9 mg/dl (0.2-1.3); Total Cholesterol 205 mg/dl (50-199); Total Protein 7.2 g/dl (6.3-8.2); Triglyceride 203 mg/dl (10-149); Very Low Density Lipoprotein 40 mg/dl (0-30); eGFR > 60.00
== END ==
LOC: REG 06:39
PROVIDERS: ATTENDING PHYSICIAN Internal Medicine Interventional Cardiology; FAMILY PHYSICIAN Internal Medicine; OTHER PHYSICIAN Internal Medicine Hematology & Oncology
DX: I35.0 Nonrheumatic aortic (valve) stenosis (principal); E78.2 Mixed hyperlipidemia; I35.1 Nonrheumatic aortic (valve) insufficiency; C49.0 Malignant neoplasm of connective and soft tissue of head, face and neck
CPT/HCPCS: 36415; 80053; 80061; 85025

== ENCOUNTER → 2025-01-09 06:35 | Outpatient (REF) | payer MEDICARE, OTHER, SELFPAY ==
[2025-01-09 07:57] LABS: % Basophils 0.6 % (0-2); % Immature Granulocytes 0.4 % (0-0.5); % Lymphocytes 23.9 % (20.5-51.1); % Monocytes 4.8 % (1.7-9.3); % Neutrophils 70.3 % (42.2-75.2); Absolute Lymphocytes 1.2 10^3/uL (1.2-3.4); Absolute Monocytes 0.3 10^3/uL (0.1-0.6); Absolute Neutrophils 3.7 10^3/uL (1.4-6.5); Hematocrit 38.3 % (39.0-52.0); Hemoglobin 13.1 g/dL (13.0-18.0); Mean Corp Hgb Conc. 34.2 g/dL (33.0-37.0); Mean Corpuscular Hgb 30.9 pg (27.0-31.0); Mean Corpuscular Volume 90.3 fL (80.0-94.0); Mean Platelet Volume 10.2 fL (7.4-10.4); Nucleated Red Blood Cells % 0.4 % (-); Platelet Count 263 10^3/uL (130-400); Red Blood Cell Count 4.24 10^6/uL (4.70-6.10); Red Cell Dist. Width 13.7 % (11.5-14.5); White Blood Cell Count 5.2 10^3/uL (4.8-10.8)
[2025-01-09 08:21] LABS: ALT (SGPT) 23 U/L (0-50); AST (SGOT) 19 U/L (17-59); Albumin 4.4 g/dl (3.5-5.0); Alkaline Phosphatase 77 U/L (38-126); Blood Urea Nitrogen 19 mg/dl (9-20); Calcium 9.9 mg/dl (8.4-10.2); Carbon Dioxide 22 mmol/L (22-30); Chloride 108 mmol/L (98-107); Glucose 103 mg/dl (70-99); Potassium 4.5 mmol/L (3.5-5.1); Sodium 142 mmol/L (135-145); Total Bilirubin 0.5 mg/dl (0.2-1.3); Total Protein 6.9 g/dl (6.3-8.2); eGFR > 60.00
== END ==
LOC: REG 06:35
PROVIDERS: ATTENDING PHYSICIAN Internal Medicine Hematology & Oncology; FAMILY PHYSICIAN Internal Medicine
DX: C49.0 Malignant neoplasm of connective and soft tissue of head, face and neck (principal)
CPT/HCPCS: 36415; 80053; 85025

== ENCOUNTER → 2025-01-23 06:20 | Outpatient (REF) | payer MEDICARE, OTHER, SELFPAY ==
[2025-01-23 07:34] LABS: % Basophils 0.8 % (0-2); % Eosinophils 0.5 % (0-6); % Immature Granulocytes 1.1 % (0-0.5); % Lymphocytes 21.3 % (20.5-51.1); % Monocytes 14.3 % (1.7-9.3); Absolute Basophils 0.1 10^3/uL (0-0.2); Absolute Immature Granulocytes 0.1 10^3/uL (0-0.05); Absolute Lymphocytes 1.3 10^3/uL (1.2-3.4); Absolute Monocytes 0.9 10^3/uL (0.1-0.6); Absolute Neutrophils 3.9 10^3/uL (1.4-6.5); Hematocrit 38.9 % (39.0-52.0); Hemoglobin 13.1 g/dL (13.0-18.0); Mean Corp Hgb Conc. 33.7 g/dL (33.0-37.0); Mean Corpuscular Hgb 30.8 pg (27.0-31.0); Mean Corpuscular Volume 91.5 fL (80.0-94.0); Mean Platelet Volume 9.9 fL (7.4-10.4); Nucleated Red Blood Cells % 0 % (-); Platelet Count 284 10^3/uL (130-400); Red Blood Cell Count 4.25 10^6/uL (4.70-6.10); Red Cell Dist. Width 14.4 % (11.5-14.5); White Blood Cell Count 6.2 10^3/uL (4.8-10.8)
[2025-01-23 08:06] LABS: ALT (SGPT) 20 U/L (0-50); AST (SGOT) 19 U/L (17-59); Albumin 4.2 g/dl (3.5-5.0); Alkaline Phosphatase 79 U/L (38-126); Blood Urea Nitrogen 26 mg/dl (9-20); Calcium 10.1 mg/dl (8.4-10.2); Carbon Dioxide 21 mmol/L (22-30); Chloride 107 mmol/L (98-107); Glucose 110 mg/dl (70-99); Potassium 4.5 mmol/L (3.5-5.1); Sodium 139 mmol/L (135-145); Total Bilirubin 0.5 mg/dl (0.2-1.3); eGFR 45.91
== END ==
LOC: REG 06:20
PROVIDERS: ATTENDING PHYSICIAN Internal Medicine Hematology & Oncology; FAMILY PHYSICIAN Internal Medicine
DX: C49.0 Malignant neoplasm of connective and soft tissue of head, face and neck (principal)
CPT/HCPCS: 36415; 80053; 85025

== ENCOUNTER → 2025-05-09 15:53 | Outpatient (REF) | payer MEDICARE, OTHER, SELFPAY | LOC: RCS 15:53 | PROVIDERS: ATTENDING PHYSICIAN Internal Medicine Hematology & Oncology; FAMILY PHYSICIAN Internal Medicine | DX: C49.0 Malignant neoplasm of connective and soft tissue of head, face and neck (principal) | CPT/HCPCS: 93306; 93356 ==

== ENCOUNTER → 2025-05-15 12:00 | Outpatient (REF) | payer MEDICARE, OTHER, SELFPAY ==
[2025-05-15 12:28] LABS: Hematocrit 35.5 % (39.0-52.0); Hemoglobin 11.7 g/dL (13.0-18.0); Mean Corp Hgb Conc. 33.0 g/dL (33.0-37.0); Mean Corpuscular Volume 87.9 fL (80.0-94.0); Nucleated Red Blood Cells % 0 % (-); Platelet Count 268 10^3/uL (130-400); Red Cell Dist. Width 14.6 % (11.5-14.5)
[2025-05-15 12:54] LABS: ALT (SGPT) 13 U/L (0-50); AST (SGOT) 17 U/L (17-59); Albumin 4.3 g/dl (3.5-5.0); Alkaline Phosphatase 77 U/L (38-126); Blood Urea Nitrogen 20 mg/dl (9-20); Calcium 9.8 mg/dl (8.4-10.2); Carbon Dioxide 20 mmol/L (22-30); Chloride 109 mmol/L (98-107); Glucose 140 mg/dl (70-99); Potassium 4.8 mmol/L (3.5-5.1); Sodium 137 mmol/L (135-145); Total Protein 7.3 g/dl (6.3-8.2); eGFR > 60.00
== END ==
LOC: REG 12:00
PROVIDERS: ATTENDING PHYSICIAN Internal Medicine Hematology & Oncology
DX: C49.0 Malignant neoplasm of connective and soft tissue of head, face and neck (principal)
CPT/HCPCS: 36415; 80053; 85025

== ENCOUNTER → 2025-05-21 12:28 | Outpatient (REF) | payer MEDICARE, OTHER, SELFPAY ==
[2025-05-21 14:08] LABS: Hematocrit 36.9 % (39.0-52.0); Hemoglobin 12.0 g/dL (13.0-18.0); Mean Corp Hgb Conc. 32.5 g/dL (33.0-37.0); Mean Corpuscular Volume 88.3 fL (80.0-94.0); Nucleated Red Blood Cells % 0 % (-); Platelet Count 259 10^3/uL (130-400); Red Cell Dist. Width 14.7 % (11.5-14.5)
[2025-05-21 16:16] LABS: ALT (SGPT) 14 U/L (0-50); AST (SGOT) 16 U/L (17-59); Albumin 4.5 g/dl (3.5-5.0); Alkaline Phosphatase 66 U/L (38-126); Blood Urea Nitrogen 27 mg/dl (9-20); Calcium 10.2 mg/dl (8.4-10.2); Carbon Dioxide 20 mmol/L (22-30); Chloride 108 mmol/L (98-107); Glucose 111 mg/dl (70-99); Potassium 5.0 mmol/L (3.5-5.1); Sodium 138 mmol/L (135-145); Total Protein 7.8 g/dl (6.3-8.2); eGFR > 60.00
== END ==
LOC: REG 12:28
PROVIDERS: ATTENDING PHYSICIAN Internal Medicine Hematology & Oncology; FAMILY PHYSICIAN Internal Medicine
DX: C49.0 Malignant neoplasm of connective and soft tissue of head, face and neck (principal)
CPT/HCPCS: 36415; 80053; 85025

== ENCOUNTER → 2025-06-13 07:03 | Outpatient (REF) | payer MEDICARE, OTHER, SELFPAY | LOC: RCS 07:03 | PROVIDERS: ATTENDING PHYSICIAN Internal Medicine Interventional Cardiology; FAMILY PHYSICIAN Internal Medicine; REFERRING PHYSICIAN Internal Medicine Hematology & Oncology | DX: C49.9 Malignant neoplasm of connective and soft tissue, unspecified (principal); Z95.2 Presence of prosthetic heart valve | CPT/HCPCS: 93308; 93321; 93325 ==

== ENCOUNTER → 2025-06-18 06:40 | Outpatient (REF) | payer MEDICARE, OTHER, SELFPAY ==
[2025-06-18 07:57] LABS: Hematocrit 40.0 % (39.0-52.0); Hemoglobin 13.0 g/dL (13.0-18.0); Mean Corp Hgb Conc. 32.5 g/dL (33.0-37.0); Mean Corpuscular Volume 87.3 fL (80.0-94.0); Nucleated Red Blood Cells % 0 % (-); Platelet Count 334 10^3/uL (130-400); Red Cell Dist. Width 15.3 % (11.5-14.5)
[2025-06-18 09:01] LABS: ALT (SGPT) 14 U/L (0-50); AST (SGOT) 17 U/L (17-59); Albumin 4.5 g/dl (3.5-5.0); Alkaline Phosphatase 78 U/L (38-126); Blood Urea Nitrogen 23 mg/dl (9-20); Calcium 9.9 mg/dl (8.4-10.2); Carbon Dioxide 20 mmol/L (22-30); Chloride 108 mmol/L (98-107); Glucose 114 mg/dl (70-99); Potassium 4.9 mmol/L (3.5-5.1); Sodium 138 mmol/L (135-145); Total Protein 7.5 g/dl (6.3-8.2); eGFR > 60.00
== END ==
LOC: REG 06:40
PROVIDERS: ATTENDING PHYSICIAN Internal Medicine Hematology & Oncology; FAMILY PHYSICIAN Internal Medicine
DX: C49.0 Malignant neoplasm of connective and soft tissue of head, face and neck (principal)
CPT/HCPCS: 36415; 80053; 85025

== ENCOUNTER → 2025-07-16 07:34 | Outpatient (REF) | payer MEDICARE, OTHER, SELFPAY ==
[2025-07-16 08:45] LABS: Hematocrit 38.0 % (39.0-52.0); Hemoglobin 12.4 g/dL (13.0-18.0); Mean Corp Hgb Conc. 32.6 g/dL (33.0-37.0); Mean Corpuscular Volume 86.0 fL (80.0-94.0); Nucleated Red Blood Cells % 0 % (-); Platelet Count 314 10^3/uL (130-400); Red Cell Dist. Width 15.7 % (11.5-14.5)
[2025-07-16 09:21] LABS: Glycohemoglobin (HgbA1c) 6.4 % (4.0-5.6)
[2025-07-16 09:23] LABS: ALT (SGPT) 15 U/L (0-50); AST (SGOT) 17 U/L (17-59); Albumin 4.3 g/dl (3.5-5.0); Alkaline Phosphatase 78 U/L (38-126); Blood Urea Nitrogen 31 mg/dl (9-20); Calcium 9.7 mg/dl (8.4-10.2); Carbon Dioxide 19 mmol/L (22-30); Chloride 110 mmol/L (98-107); Glucose 113 mg/dl (70-99); Potassium 4.9 mmol/L (3.5-5.1); Sodium 138 mmol/L (135-145); Total Protein 7.0 g/dl (6.3-8.2); eGFR 54.17
== END ==
LOC: REG 07:34
PROVIDERS: ATTENDING PHYSICIAN Internal Medicine Hematology & Oncology; FAMILY PHYSICIAN Internal Medicine
DX: C49.0 Malignant neoplasm of connective and soft tissue of head, face and neck (principal); E11.9 Type 2 diabetes mellitus without complications
CPT/HCPCS: 36415; 80053; 83036; 85025

== ENCOUNTER → 2025-08-12 11:04 | Outpatient (REF) | payer MEDICARE, OTHER, SELFPAY | LOC: RAD 11:04 | PROVIDERS: ATTENDING PHYSICIAN Internal Medicine Hematology & Oncology; FAMILY PHYSICIAN Internal Medicine | DX: C49.0 Malignant neoplasm of connective and soft tissue of head, face and neck (principal) | CPT/HCPCS: 70492; 71270; 74178; Q9967 ==

== ENCOUNTER → 2025-08-13 09:19 | Outpatient (REF) | payer MEDICARE, OTHER, SELFPAY ==
[2025-08-13 10:50] LABS: Hematocrit 37.7 % (39.0-52.0); Hemoglobin 11.9 g/dL (13.0-18.0); Mean Corp Hgb Conc. 31.6 g/dL (33.0-37.0); Mean Corpuscular Volume 90.4 fL (80.0-94.0); Nucleated Red Blood Cells % 0 % (-); Platelet Count 287 10^3/uL (130-400); Red Cell Dist. Width 16.2 % (11.5-14.5)
[2025-08-13 11:23] LABS: ALT (SGPT) 18 U/L (0-50); AST (SGOT) 17 U/L (17-59); Albumin 4.1 g/dl (3.5-5.0); Alkaline Phosphatase 79 U/L (38-126); Blood Urea Nitrogen 23 mg/dl (9-20); Calcium 9.6 mg/dl (8.4-10.2); Carbon Dioxide 21 mmol/L (22-30); Chloride 108 mmol/L (98-107); Glucose 104 mg/dl (70-99); Potassium 4.8 mmol/L (3.5-5.1); Sodium 139 mmol/L (135-145); Total Protein 6.8 g/dl (6.3-8.2); eGFR > 60.00
== END ==
LOC: RCS 09:19
PROVIDERS: ATTENDING PHYSICIAN Internal Medicine Interventional Cardiology; FAMILY PHYSICIAN Internal Medicine; REFERRING PHYSICIAN Internal Medicine Hematology & Oncology
DX: C49.9 Malignant neoplasm of connective and soft tissue, unspecified (principal); Z95.2 Presence of prosthetic heart valve; C49.0 Malignant neoplasm of connective and soft tissue of head, face and neck
CPT/HCPCS: 36415; 80053; 85025; 93306; 93356

== ENCOUNTER → 2025-09-21 10:19 | Outpatient (REF) | payer MEDICARE, OTHER, SELFPAY ==
[2025-09-21 11:04] LABS: Hematocrit 39.6 % (39.0-52.0); Hemoglobin 12.5 g/dL (13.0-18.0); Mean Corp Hgb Conc. 31.6 g/dL (33.0-37.0); Mean Corpuscular Volume 91.5 fL (80.0-94.0); Nucleated Red Blood Cells % 0 % (-); Platelet Count 253 10^3/uL (130-400); Red Cell Dist. Width 14.6 % (11.5-14.5)
[2025-09-21 11:59] LABS: ALT (SGPT) 17 U/L (0-50); AST (SGOT) 21 U/L (17-59); Albumin 4.5 g/dl (3.5-5.0); Alkaline Phosphatase 80 U/L (38-126); Blood Urea Nitrogen 23 mg/dl (9-20); Calcium 9.8 mg/dl (8.4-10.2); Carbon Dioxide 25 mmol/L (22-30); Chloride 103 mmol/L (98-107); Glucose 129 mg/dl (70-99); Potassium 4.5 mmol/L (3.5-5.1); Sodium 137 mmol/L (135-145); Total Protein 7.8 g/dl (6.3-8.2); eGFR > 60.00
[2025-09-21 12:05] LABS: TSH 1.43 uIU/ml (0.47-4.68)
== END ==
LOC: REG 10:19
PROVIDERS: ATTENDING PHYSICIAN Internal Medicine Hematology & Oncology; FAMILY PHYSICIAN Internal Medicine
DX: C49.0 Malignant neoplasm of connective and soft tissue of head, face and neck (principal); K59.09 Other constipation
CPT/HCPCS: 36415; 80053; 84443; 85025